=== PATIENT | female | born 1950 | race American Indian/Alaskan Native ===

== ENCOUNTER 2017-08-19 09:03 | Outpatient (CLI) | payer MEDICARE ==
--- NOTE | 2017-08-21 10:26 | Cat Scan Report ---
CT ANGIO ABD/FEMORAL ABD AORTA: HISTORY: Atherosclerosis of burns paiute arteries extremities with rest pain. TECHNIQUE: Helical CT imaging with 1.25mm reconstructions following IV contrast. Sagittal and Coronal 2D reformatted images. 3 dimensional volume rendering technique. Stenosis was measured using NASCET criteria. COMPARISON: none. FINDINGS: ABDOMINAL AORTA: Minimal partially calcified plaques. Less than 20% stenosis. No aneurysm or dissection. The celiac axis, SMA, bilateral single renal arteries and LANDY are patent with less than 20% stenosis. COMMON ILIAC ARTERIES: Mild partially calcified plaques. Less than 20% stenosis. EXTERNAL ILIAC ARTERIES: Less than 20% stenosis. INTERNAL ILIAC ARTERIES: Less than 20% stenosis. RIGHT LOWER EXTREMITY: A short segment of 2-3 cm of the proximal right superficial femoral artery is occluded with 100% stenosis. Collateral vessels reconstitute flow distally. Distal to this occlusion, there is less than 20% stenosis. The right popliteal artery demonstrates less than 20% stenosis. The right anterior tibial artery and posterior tibial artery are patent to the ankle with no significance disease. There is moderate atherosclerotic disease in the distal peroneal artery in the mid vieira region with eventual occlusion. LEFT LOWER EXTREMITY: The left superficial femoral and left popliteal arteries are patent with less than 20% stenosis. The left posterior tibial artery and left peroneal artery are patent to the ankle with less than 50% stenosis. There is moderate atherosclerotic disease in the distal left anterior tibial artery with eventual occlusion in the distal vieira region. IMPRESSION: Focal occlusion in the proximal right superficial femoral artery as described. Moderate atherosclerotic disease and probable occlusion of the distal right peroneal artery and distal left anterior tibial artery.
== END 2017-08-19 09:04 | disposition home or self-care (01) ==
LOC: CT 09:03
PROVIDERS: ATTEND Surgery Vascular Surgery
DX: I70.203 Unspecified atherosclerosis of native arteries of extremities, bilateral legs (principal); I70.0 Atherosclerosis of aorta; J44.9 Chronic obstructive pulmonary disease, unspecified; E11.9 Type 2 diabetes mellitus without complications
CPT/HCPCS: 75635; Q9967